=== PATIENT | male | born 1995 | race Caucasian/White ===

== ENCOUNTER 2021-04-26 23:16 | Emergency (ER) | payer SELFPAY ==
[2021-04-26] MEDS ORDERED: Glucagon,Human Recombinant 1 MG Vial IVPUSH ONE (23:36)
[2021-04-26] MEDS ORDERED: Sodium Chloride 0.9% 1,000 ML IV STA (23:36)
[2021-04-27] MEDS ORDERED: Midazolam 1 MG/ML 2 ML SDV ONE (01:44)
[2021-04-27] MEDS ORDERED: Propofol 200 MG/20 ML SDV ONE (01:44)
[2021-04-27] MEDS ORDERED: fentaNYL 100 MCG/2 ML SDV ONE (01:44)
[2021-04-27] MEDS ORDERED: Rocuronium Bromide 50 MG/5 ML Syringe ONE (01:45)
[2021-04-27] MEDS ORDERED: Ondansetron 4 MG/2 ML SDV ONE (01:45)
[2021-04-27] MEDS ORDERED: Dexamethasone 4 MG/ML 5 ML MDV ONE (01:45)
[2021-04-27] MEDS ORDERED: Famotidine 20 MG/2 ML SDV ONE (02:14)
[2021-04-27] MEDS ORDERED: Metoclopramide 10 MG/2 ML SDV ONE (02:15)
== END 2021-04-27 02:23 | disposition still patient (30) ==
LOC: EDBD → MW.ED 23:16
DX: T18.128A Food in esophagus causing other injury, initial encounter (principal); U07.1 COVID-19; Z88.2 Allergy status to sulfonamides
CPT/HCPCS: 70360; 87635; 96374; 99284; J0330; J1100; J1610; J2250; J2405; J2704; J2765; J3010; J3490; J7040; U0002

== ENCOUNTER 2021-04-27 00:46 | Day surgery (SDC) | payer SELFPAY ==
[2021-04-27] MEDS ORDERED: Sodium Chloride 0.9% 1,000 ML IV SCH (04:00)
== END 2021-04-27 05:15 | disposition home or self-care (01) ==
LOC: EDBD 00:46 → MW.SDS 00:46
PROVIDERS: ATTEND Surgery
DX: T18.128A Food in esophagus causing other injury, initial encounter (principal); Z88.2 Allergy status to sulfonamides; Z98.890 Other specified postprocedural states
CPT/HCPCS: 731